=== PATIENT | male | born 1955 | race Caucasian/White ===

== ENCOUNTER 2016-11-30 18:52 | Emergency (ER) | payer OTHER ==
[~2016-11-30] VITALS: Ht 152.4 cm; Wt 68.1 kg
[~2016-11-30 18:52] MED LIST: CEPH-443 PO; HYDR-3498 PO; IBUP-1542 PO; NAPR-260 PO
[2016-11-30 19:51] VITALS: Ht 152.4 cm; Wt 68.1 kg
[2016-11-30] MEDS ORDERED: IBUPROFEN 600 MG TAB PO ONE (22:00)
[2016-11-30] MEDS ORDERED: ACETAMINOPHEN 325 MG TAB PO ONE (22:00)
--- NOTE | 2016-11-30 22:07 | ERD ---
ER Documentation Chief Complaint Date/Time DATE: 11/30/16 TIME: 22:02 Chief Complaint JOHNSON, BODYACHES CHILLS A ND FEVER X 1 DAY, MOTRIN INEFFECTIVE. HPI 61-year-old male presents here in emergency department for complaints of headache bodyaches chills fever for 1 day, denies any other symptoms. Patient denies any cough shortness breath or wheezing. Patient denies any sore throat ear pain. Patient denies abdominal pain nausea vomiting diarrhea. Patient hematuria or dysuria. ROS All systems reviewed and are negative except as per history of present illness. Medications Home Meds Active Scripts Ciprofloxacin Hcl* (Ciprofloxacin Hcl*) 500 Mg Tablet, 500 MG PO BID for 10 Days , TAB Prov:ERMIAS ASCENCIO NP 11/30/16 Phenazopyridine Hcl* (Pyridium*) 200 Mg Tab, 200 MG PO TID Y for URINARY PAIN, # 6 TAB Prov:ERMIAS ASCENCIO NP 11/30/16 Ibuprofen* (Motrin*) 600 Mg Tab, 600 MG PO Q6H Y for PAIN AND OR ELEVATED TEMP, #30 TAB Prov:ERMIAS ASCENCIO NP 11/30/16 Acetaminophen* (Tylophen*) 500 Mg Capsule, 1 CAP PO Q6H Y for PAIN AND OR ELEVATED TEMP, #20 CAP Prov:ERMIAS ASCENCIO NP 11/30/16 Cephalexin* (Keflex*) 500 Mg Capsule, 500 MG PO QID for 5 Days, CAP Prov:KARYN CARREON MD 02/01/16 Ibuprofen* (Motrin*) 600 Mg Tab, 600 MG PO Q6, #20 TAB Prov:KARYN CARREON MD 02/01/16 Naproxen* (Naprosyn*) 500 Mg Tablet, 500 MG PO BID Y for PAIN AND/OR INFLAMMATION, #30 TAB Prov:NIKOLAY SINGH PA-C 07/07/15 Hydrocodone Bit-Acetaminophen* ([place]*) 5-325 Mg Tab, 1 TAB PO Q6 Y for PAIN, # 10 TAB Prov:NIKOLAY SINGH PA-C 07/07/15 Allergies Allergies: Coded Allergies: No Known Allergy (Verified , 07/01/12) PMhx/Soc History of Surgery: Yes (RIGHT WRIST) Anesthesia Reaction: No Hx Neurological Disorder: No Hx Respiratory Disorders: No Hx Cardiac Disorders: No Hx Psychiatric Problems: No Hx Miscellaneous Medical Probl: No Hx Alcohol Use: Yes (OCCASIONALLY) Hx Substance Use: No Hx Tobacco Use: No FmHx Family History: No coronary disease, No diabetes, No other Physical Exam Vitals Vital Signs Date Time Temp Pulse Resp B/P Pulse Ox O2 Delivery O2 Flow Rate FiO2 11/30/16 23:27 98.9 84 16 108/63 98 Room Air 11/30/16 19:51 102.6 119 22 124/89 95 Physical Exam GENERAL: The patient is well developed and appropriate for usual state of health, in no apparent distress. CHEST: Clear to auscultation bilaterally. There are no rales, wheezes or rhonchi. HEART: Regular rate and rhythm. No murmurs, clicks, rubs or gallops. No S3 or S4. ABDOMEN: Soft, nontender and nondistended. Good bowel sounds. No rebound or guarding. No gross peritonitis. No gross organomegaly or masses. No Narvaez sign or McBurney point tenderness. BACK: No midline or flank tenderness. EXTREMITIES: Equal pulses bilaterally. There is no peripheral clubbing, cyanosis or edema. No focal swelling or erythema. Full range of motion. Grossly neurovascularly intact. NEURO: Alert and oriented. Cranial nerves 2-12 intact. Motor strength in all 4 extremities with 5/5 strength. Sensation grossly intact. Normal speech and gait. SKIN: There is no apparent rash or petechia. The skin is warm and dry. HEMATOLOGIC AND LYMPHATIC: There is no evidence of excessive bruising or lymphedema. No gross cervical, axillary, or inguinal lymphadenopathy. Results 24 hrs Laboratory Tests Test 11/30/16 22:00 Urine Color LT. YELLOW Urine Clarity CLOUDY Urine pH 7.0 Urine Specific [place] 1.010 Urine Ketones NEGATIVE Urine Nitrite NEGATIVE Urine Bilirubin NEGATIVE Urine Urobilinogen 0.2 E.U./dL Urine Leukocyte Esterase 2+ Urine Microscopic RBC 5-10/HPF Urine Microscopic WBC >200/HPF Urine Transitional Epithelial Cells FEW Urine Bacteria MODERATE Urine Hemoglobin 1+ Urine Glucose NEGATIVE% Urine Total Protein 1+ Current Medications Medications (Trade) Dose Ordered Sig/Moses Route PRN Reason Start Time Stop Time Status Last Admin Dose Admin Ibuprofen (Motrin) 600 mg ONCE ONCE PO 11/30/16 22:00 5/1/17 22:01 DC 11/30/16 22:15 Acetaminophen (Tylenol Tab) 650 mg ONCE ONCE PO 11/30/16 22:00 11/30/16 22:01 DC 11/30/16 22:15 Patient was given medicines for fever control here in the emergency department. After treatment, patient temperature improved and lower. Patient appears well and is hemodynamically stable. Patient is advised to take medications as prescribed. Patient is advised to rest. Patient advised to increase fluid intake, do humidifier at home and if possible, do salt water gargles. Patient is advised that if symptoms are worse, shortness of breath, uncontrolled fever, stridor, vomiting, worst signs and symptoms to return to emergency department immediately. Otherwise, patient is advised to follow up with primary doctor in 5-7 days. PROCEDURE: XR Chest. CLINICAL INDICATION: Fever. TECHNIQUE: PA and Lateral views of the chest were obtained. COMPARISON: None. FINDINGS: The cardiomediastinal silhouette is within normal limits. The lungs are clear. No signs of pleural fluid or pneumothorax are seen. The osseous structures and soft tissues are unremarkable. IMPRESSION: No evidence for active cardiopulmonary disease. RPTAT: [facility] Physician Tonya Date Time Electronically viewed and signed by Physician Tonya on 11/30/2016 22:54 RS/ CC: ERMIAS ASCENCIO RAZOR GRINDER Procedures/MDM Medical Decision Making: Patients symptoms are consistent with urinary tract infection. Patient has leukocytes and multiple WBC in the urine cloudy urine indicating infection. There is low suspicion for pyelonephritis. There is low suspicion for abdominal emergencies at this time. Patients abdominal exam is normal. There is low suspicion for sepsis. Patient appears well and is hemodynamically stable. Prescription was given for ibuprofen, Tylenol, Pyridium , ciprofloxacin, is advised to drink a lot of water, rest, do good penile hygiene, patient is advised to return to emergency department for new worsening symptoms. Departure Diagnosis: Primary Impression: UTI (urinary tract infection) Urinary tract infection type: acute cystitis Hematuria presence: with hematuria Qualified Code: N30.01 - Acute cystitis with hematuria Condition: Stable Patient Instructions: Understanding Urinary Tract Infections (UTIs) ERMIAS ASCENCIO NP November 30, 2016 22:07
[2016-11-30 22:36] LABS: ADD UMIC YES; URINE BILIRUBIN (Dip) NEGATIVE (NEGATIVE); URINE BLOOD (Dip) 1+ (NEGATIVE); URINE COLOR LT. YELLOW (YELLOW); URINE GLUCOSE (Dip) NEGATIVE (NEGATIVE); URINE KETONES (Dip) NEGATIVE (NEGATIVE); URINE LEUKOCYTE ESTERASE (Dip) 2+ (NEGATIVE); URINE NITRITE (Dip) NEGATIVE (NEGATIVE); URINE TOTAL PROTEIN (Dip) 1+ (NEGATIVE); URINE UROBILINOGEN (Dip) 0.2 E.U./dL (0.1-1.0)
[2016-11-30 22:52] LABS: BACTERIA,URINE MODERATE; TRANSITIONAL EPI CELLS,URINE FEW
--- NOTE | 2016-11-30 22:54 | RADRPT ---
PROCEDURE: XR Chest. CLINICAL INDICATION: Fever. TECHNIQUE: PA and Lateral views of the chest were obtained. COMPARISON: None. FINDINGS: The cardiomediastinal silhouette is within normal limits. The lungs are clear. No signs of pleural f luid or pneumothorax are seen. The osseous structures and soft tissues are unremarkable. IMPRESSION: No evidence for active cardiopulmonary disease. RPTAT: [facility] Physician Tonya Date Time Electronically viewed and signed by Sreekanth Morales Physician on 11/30/2016 22:54 RS/
[2016-11-30] MEDS ORDERED: CIPR500T4 PO (22:58)
[2016-11-30] MEDS ORDERED: IBUP-1542 PO (22:58)
[2016-11-30] MEDS ORDERED: PHEN-538 PO (22:58)
[2016-11-30] MEDS ORDERED: ACET500C5 PO (22:58)
[2016-11-30 23:27] VITALS: BP 108/63; PULSE 84; RESP 16; TEMP 98.9
== END 2016-11-30 23:28 | disposition home or self-care (01) ==
LOC: FTE 18:52
DX: N30.01 Acute cystitis with hematuria (principal)
CPT/HCPCS: 71010; 81001; 87400; Z7610; 81003

== ENCOUNTER 2017-04-23 10:06 | Day surgery (SDC) | payer OTHER ==
[~2017-04-23] VITALS: Ht 157.5 cm; Wt 75.5 kg
[~2017-04-23 10:06] MED LIST changes: +ACET500C5 PO; +CIPR500T4 PO; +PHEN-538 PO
[2017-04-23 10:51] VITALS: Ht 157.5 cm; Wt 75.5 kg
[2017-04-23] MEDS ORDERED: NO MEDS (11:01)
[2017-04-23 11:05] VITALS: BP 138/91; PULSE 57; RESP 16
[2017-04-23 11:38] VITALS: BP 139/90; PULSE 57; RESP 16
--- NOTE | 2017-04-23 11:39 | OPPN ---
Date/Time of Note Date/Time of Note DATE: 04/23/17 TIME: 11:37 Operative Report Preoperative Diagnosis Screening Positive occult blood in stool Postoperative Diagnosis Internal and external hemorrhoids No colon neoplasm was identified Operation/Procedure Performed Colonoscopy Surgeon see signature line clerical administrative assistant None Anesthesia: other Estimated blood loss: none Transfusion Required none Specimen None Grafts/Implants none Complications none DAYANARA HERRERA MD Apr 23, 2017 11:39
--- NOTE | 2017-04-23 13:26 | GILP ---
DATE OF PROCEDURE: 04/23/2017 PROCEDURE: Colonoscopy. PREOPERATIVE DIAGNOSIS: 1. Screening colonoscopy. 2. Positive occult blood in stool. POSTOPERATIVE DIAGNOSES: 1. Colonoscopy all the way to the cecum. 2. Internal and external hemorrhoids. 3. No colon neoplasm was identified. INDICATION: Mr. Micheal Conway is a 61-year-old male patient who was noted to have positive occult blood in stool. He never had a screening colonoscopy. The procedure and possible complications were well explained to the patient. The patient understood and consented to the procedure. The colonoscope was carefully introduced into the rectum, and under direct vision it was advanced all the way to the cecum. FINDINGS: The patient had internal and external hemorrhoids. No colon neoplasm was identified. The patient tolerated the procedure very well, and there was no complication from the procedure. At the end of procedure, he was awake with stable vital signs. He was discharged home in the care of his family. IMPRESSION: 1. Colonoscopy all the way to the cecum. 2. Internal and external hemorrhoids. 3. No colon neoplasm was identified. PLAN: Next screening colonoscopy in 10 years. Dictated By: MD MÓNICA Higgins/kyrie/cristela /Document#: [id number]
== END 2017-04-23 11:54 | disposition home or self-care (01) ==
LOC: GIL 10:06
PROVIDERS: ATTEND Internal Medicine Gastroenterology
DX: Z12.11 Encounter for screening for malignant neoplasm of colon (principal); K64.8 Other hemorrhoids; K64.4 Residual hemorrhoidal skin tags; K92.1 Melena
CPT/HCPCS: 45378; Z7610